=== PATIENT | male | born 2005 | race Caucasian/White ===

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

== ENCOUNTER 2023-10-15 20:57 | Emergency (ER) | payer OTHER, SELFPAY ==
[2023-10-15 20:58] VITALS: BP 136/96; PULSE 67; RESP 16; TEMP 35.9; O2SAT 100; BMI 16.7
[2023-10-15 21:02] VITALS: BP 136/96; PULSE 67; RESP 16; TEMP 35.9; O2SAT 100
--- NOTE | 2023-10-15 21:03 | EKG12_ITS ---
Test Reason : CP Blood Pressure : / mmHG Vent. Rate : 072 BPM Atrial Rate : 072 BPM P-R Int : 144 ms QRS Dur : 110 ms QT Int : 362 ms P-R-T Axes : 083 084 039 degrees QTc Int : 396 ms Normal sinus rhythm Incomplete right bundle branch block Borderline ECG Confirmed by CARINA MCFADDEN, FLAKITA ([id number]), school photograph editor MADDY WOODALL ([id number]) on 10/19/2023 12:39:21 PM Referred By: Confirmed By:FLAKITA LIM MD
--- NOTE | 2023-10-15 21:10 | ED.VIS.CHEST ---
HPI History of Present Illness Chief Complaint: Chest Pain Informant: patient Onset/Context/Timing Onset: Today, Yesterday and Days Activity at onset: gradual Timing: Intermittent Quality: Positive for Sharp Location: Right Chest and Left Chest Current Severity: Mild Worsened By: Breathing Relieved By: Nothing Associated Symptoms: Negative for Nausea, Vomiting, Diaphoresis, Dyspnea, Cough, Fever, Lightheadedness, Acid Reflux or Palpitations Narrative Narrative: 18-year-old male no significant past medical history other than depression on Prozac. No cardiac history no history of DVT or PE nor risk factors. No recent travel, surgery or immobilization. No leg pain or swelling. No significant family history. Patient states 2 days ago on started having chest discomfort primarily pleuritic. Stabbing. Diffusely across both sides of his chest. Really no shortness of breath. No leg pain or swelling. No hemoptysis. No fever. No cough. No URI symptoms. He denies any IV drug use. He is never had a pneumothorax. He denies any chest wall trauma. He denies exert sternal chest pain. Prior Similar Symptoms: No Recent Illness/Hospitalization: No CVD Risk Factors: Negative for Hypertension, Diabetes, Hypercholesterolemia, Family History 1' </=55 or Smoking PE Risk Factors: Negative for Recent Travel/Surgery, Recent Immobilization, Prior DVT or PE, Cancer or OCP + Smoking + >/=35 TAD Risk Factors: Negative for Marfan's Syndrome PFSH PFSH Home Medications fluoxetine 20 mg capsule 20 mg PO DAILY 10/15/23 [History Last Taken Unknown] prednisone 20 mg tablet 40 mg (2 x 20 mg) PO DAILY 4 days #8 tabs 10/15/23 [Rx Last Taken Unknown] Allergy/AdvReac Type Severity Reaction Status Date / Time No Known Allergies Allergy Verified 10/15/23 20:58 Social History Smoking Status: Current some day smoker tobacco type: e-cigarettes ROS ROS ED ROS Narrative His recent illness. Pleuritic chest pain. Review of Systems ROS Unobtainable: Denies due to encephalopathy Constitutional Constitutional ED: Denies chills or fever(s) Eyes Eyes: Reports none ENT ENT ED: Denies ear pain Cardiovascular Cardiovascular: Reports as per HPI and chest pain; Denies palpitations or racing heartbeat Respiratory/Chest Respiratory/Chest: Denies cough or dyspnea Gastrointestinal Gastrointestinal: Denies abdominal pain, constipation, diarrhea, melena, nausea or vomiting Genitourinary Genitourinary ED: Denies dysuria or hematuria Musculoskeletal Musculoskeletal: Denies arthralgias Integumentary Denies abscess Neurologic Neurologic: Denies headache(s) Psychiatric Psychiatric: Denies anxiety Endocrine Endocrinology: Denies cold intolerance Hematologic/Lymphatic Hematologic/Lymphatic: Denies easy bleeding or easy bruising Allergic/Immunologic Allergic/Immunologic ED: Denies mouth swelling, tongue swelling or urticaria EXAM Physical Exam Narrative Exam Narrative: Well-appearing 18-year-old male. Vital signs stable afebrile. Pulse ox 100% on room air no signs hypoxia. He is in no distress. Mom and sister present in room. H EENT exam normal. Moist use membranes. Neck nontender no JVD. No lymphadenopathy. Lungs clear to auscultation bilaterally. Heart regular rhythm rate about 70 no murmur. Chest wall minimal tenderness on the right. No ecchymosis or bruising. No redness. No crepitance. No subcu air. No bony deformity. Abdomen soft nontender normal bowel sounds no peritoneal signs. Moving all 4 extremities. Equal symmetrical radial pulses. 5/5 rack washer strength. Normal range of motion. Calves are nontender without edema or cords. Neurologically is awake alert with no focal motor deficits. Back nontender. Benign exam. Const Vital Signs: 10/15/23 20:58 10/15/23 21:02 10/15/23 21:19 Temperature 96.7 F L 96.7 F L Temperature Source Temporal Temporal Pulse Rate 67 67 Respiratory Rate 16 16 Respiratory Effort Normal Non-Labored Blood Pressure 136/96 H 136/96 H Blood Pressure Mean 109 109 Pulse Ox 100 100 Oxygen Delivery Method Room Air Room Air Positive well nourished and well developed; Negative for obese, cachectic, contractures or unkempt General Appearance ED: well developed and NAD; Negative for unkempt, cachectic, contractures or pallor Nutritional Appearance: Negative for cachectic or obese HEENT Reports moist mucous membranes; Denies dry mucous membranes normocephalic and atraumatic; Negative for trauma or tenderness Mouth ED: No dry mucous membranes Mouth: No dry mucous membranes Eyes PERRL and EOMs intact bilaterally General Eye ED: Negative for pale conjunctiva or scleral icterus Neck no lymphadenopathy, supple and no JVD General: Negative for tenderness Chest Wall inspection of chest normal and palpation of chest normal Chest: Negative for tenderness Resp normal respiratory effort and clear to auscultation bilaterally Effort and Inspection: Negative for respiratory distress Auscultation: Negative for rales, rhonchi or wheezes Cardio regular rate, regular rhythm, S1 normal heart sound, S2 normal heart sound and no murmurs Rate: Negative for bradycardia or tachycardic Rhythm: Negative for abnormal rhythm Peripheral Pulses: pulses 2+ throughout GI normal to inspection, nondistended, normoactive bowel sounds, soft to palpation, non-tender, non-distended and no masses Auscultation: Negative for hyperactive bowel sounds Back/Spine no CVA tenderness and no thoracic nor lumbar tenderness General Back: Negative for CVA tenderness Cervical Spine: Negative for cervical spine tenderness Extremity normal to inspection General Extremety ED: Negative for edema, pulses abnormal or tenderness General Extremity: Negative for edema or pulses abnormal Neuro oriented x3 and CN's II-XII intact bilaterally Sensorium / Orientation: awake, alert, oriented to person, oriented to place and oriented to time; Negative for confused, lethargic or stuporous Motor Exam: strength 5/5 throughout Psych mental status grossly normal Appearance: Negative for unkempt Attitude: No agitated Mood & Affect: Negative for depressed, anxious or tearful Skin no rashes or lesions noted and no wounds General Skin Exam: Negative for jaundice or pallor Rashes: No rashes noted Trauma: Negative for abrasion or laceration Heart Score History: Slightly/Non-Suspicious ECG: Normal Age: </= 45 years Risk Factors: No Risk Factors Score: 0 MDM MDM MDM Narrative Medical decision making narrative: 18-year-old male no significant past medical history with pleuritic chest pain. Exam is benign. No DVT or PE risk factors. No cardiac disease. EKG is a sinus rhythm with an incomplete right bundle branch block. Chest x-ray being obtained. I do not think lab work is necessary. Repeat exam at 9:33 PM call. He has been using ibuprofen at home without relief. To be placed on prednisone given first dose here in 40 mg a day for the next 4 days. Follow-up with his primary care physician if not improving or return if worse. I discussed the test results with he and his family. They are comfortable with the plan. I do not feel he needs a CAT scan or any lab work currently. Again he has no history nor family history nor risk factors for DVT or PE. History & Record Review Discussion w/independent historian: Patient and Family Additional record(s) reviewed:: Prior inpatient record, Prior outpatient record, Prior ED visit and Prior labs Radiography Chest X-Ray - ED: 2 View, Read by ED Physician, Heart, Lungs, Mediastinum, Bony Structures and No Acute Disease Diagnostic Testing: X-ray, 2 views, AP and lateral, interpreted by myself shows no acute abnormality. Normal cardiac silhouette. Normal aortic knob. Normal mediastinum. Bilateral normal lung bustamante. No pneumothorax. No infiltrate. No effusions or fluid. Rhythm Strip Rhythm Strip: Sinus Rhythm Rate: 72 Ectopy: None EKG Initial EKG: Attestation: I personally reviewed and interpreted this EKG as follows: Interpretation: Sinus Rhythm and No Acute Injury Pattern Comments: Normal sinus rhythm rate of 72 no acute signs of MD or ischemia. Incomplete right bundle branch block. No old EKG available for comparison. Prior EKG tracings: not available for review Prior: No Prior Discharge Plan Triage Chief Complaint: Chest Pain ED Provider: James Garcia Dx/Rx/DC Orders Clinical Impression: Chest pain Instructions: ED Chest Pain, Noncardiac Prescriptions: New prednisone 20 mg tablet 40 mg PO DAILY 4 Days Qty: 8 0RF No Action fluoxetine 20 mg capsule 20 mg PO DAILY Patient Comments: take 1 capsule by mouth daily Primary Care Provider: Carlos Perez Referrals: Carlos Perez MD [Primary Care Provider] - 1 Week if not improving Activity Restrictions/Additional Instructions: Chest pain may be due to inflammation in your lungs or chest wall. We will start you on prednisone 40 mg a day for the next 4 days starting tomorrow. You were given your first dose here [facility] emergency department. Follow-up with your doctor if not improving or return if worse. This should progressively get better. Your chest x-ray and EKG were basically unremarkable. Disposition Disposition: Home, Self Care
--- NOTE | 2023-10-15 21:20 | RAD_ITS ---
STUDY: X-RAY CHEST REASON FOR EXAM: Male, 18 years old. cp TECHNIQUE: PA and lateral views of the chest. COMPARISON: 08/19/2020 FINDINGS: The lungs are clear and expanded. There is no demonstrated pleural abnormality. Normal size heart. Normal mediastinum and angus. Normal visualized pulmonary arteries. Normal visualized aortic arch and descending thoracic aorta. Normal visualized thoracic spine. Normal visualized ribs, clavicles, and shoulders. There is no demonstrated abnormality of the visualized soft tissue structures of the upper abdomen. RAD/Chest PA and Lateral IMPRESSION: Normal x-ray examination of the chest. Electronically Signed: Jordan Daigle MD ([place]) at 21:37 EST ,
[2023-10-15] MEDS: predniSONE 20 MG Tablet 40 MG PO (21:48)
== END 2023-10-15 21:52 | disposition home or self-care (01) ==
LOC: ED 21:51
PROVIDERS: Emergency Provider Emergency Medicine; PCP Pediatrics; Visit Provider Emergency Medicine
DX: R07.9 Chest pain, unspecified (principal); F17.290 Nicotine dependence, other tobacco product, uncomplicated
CPT/HCPCS: 71046; 93005; 99282

== ENCOUNTER 2024-09-07 18:28 | Emergency (ER) | payer OTHER, SELFPAY ==
[2024-09-07 18:29] VITALS: BP 142/96; PULSE 74; RESP 16; TEMP 36.2; O2SAT 100; BMI 17.6
--- NOTE | 2024-09-07 18:49 | EX.ED.DYSGE1 ---
HPI History of Present Illness Chief Complaint: Shortness of Breath Detail of Chief Complaint: Patient presents from urgent care because of pleuritic chest pain Informant: patient Onset/Context/Timing Onset: Today and Hours Context: Sudden Onset Timing: Intermittent Quality: Pleuritic pain left scapular region initially and also left anterior chest Location: Left side Current Severity: Pain with breathing. Worsened by: Breathing Relieved by: Not breathing Associated Symptoms Associated Symptoms: Upper respiratory viral symptoms Narrative Narrative: Patient is a 19-year-old male. He presents because of pleuritic left scapular pain that started earlier today he now complains of pleuritic anterior chest pain. He does endorse rhinorrhea, congestion. Denies sore throat. He has a slight cough at best. The cough is nonproductive. There is no history of VTE. Has no risk factors for VTE. He denies leg pain, swelling discoloration. He denies GI symptoms. He initially went to the urgent care. He was sent here. He is not certain why he was sent here. Prior similar symptoms: No Recent Illness/Hospitalization: No PFSH FOR[facility], [facility]–1983 Home Medications ?Medication ?Instructions ?Recorded ?Last Taken ?Type fluoxetine 20 mg capsule 20 mg PO DAILY 10/15/23 Unknown History prednisone 20 mg tablet 40 mg (2 x 20 mg) PO DAILY 4 days 10/15/23 Unknown Rx #8 tabs ibuprofen 600 mg tablet 600 mg PO Q8H PRN #15 TABLETS 09/07/24 Unknown Rx Allergy/AdvReac Type Severity Reaction Status Date / Time No Known Allergies Allergy Verified 09/07/24 18:29 Social History Smoking Status: Current some day smoker tobacco type: e-cigarettes ROS ROS ED Constitutional Constitutional ED: Denies chills, fever(s) or subjective ENT ENT ED: Reports rhinorrhea; Denies ear pain or sore throat Cardiovascular Cardiovascular: Reports chest pain; Denies orthopnea, palpitations, paroxysmal nocturnal dyspnea or racing heartbeat Respiratory/Chest Respiratory/Chest: Reports dyspnea; Denies dyspnea on exertion, orthopnea, paroxysmal nocturnal dyspnea or sputum Gastrointestinal Gastrointestinal: Denies diarrhea, nausea or vomiting Integumentary Denies rash Neurologic Neurologic: Denies weakness EXAM Physical Exam Const Vital Signs: 09/07/24 18:29 Temperature 97.2 F L Temperature Source Temporal Pulse Rate 74 Respiratory Rate 16 Blood Pressure 142/96 H Blood Pressure Mean 111 Pulse Ox 100 Oxygen Delivery Method Room Air Positive well nourished and well developed General Appearance ED: well developed and NAD; Negative for pallor HEENT Reports moist mucous membranes HEENT Narrative: Head is atraumatic no cephalic. Ears normal. Nares patent. Slight clear drainage noted. Eyes PERRL and EOMs intact bilaterally General Eye ED: Negative for pale conjunctiva or scleral icterus Neck no lymphadenopathy, supple and no JVD Neck Narrative: Trachea is midline. There is no dysphonia. There is no stridor. Chest Wall palpation of chest normal Resp normal respiratory effort and clear to auscultation bilaterally Cardio regular rate, regular rhythm, S1 normal heart sound, S2 normal heart sound and no murmurs Extremity Extremity Narrative: There is no asymmetry, swelling, discoloration, leg vein distention, palpable cords or tenderness along the distribution of the deep venous system. Neuro oriented x3 and CN's II-XII intact bilaterally Sensorium / Orientation: alert Psych mental status grossly normal Skin no rashes or lesions noted, no wounds and skin turgor normal General Skin Exam: elasticity normal; Negative for jaundice or pallor MDM MDM MDM Narrative Medical decision making narrative: Patient history and physical is consistent with pleurisy. There is no concern for PE. He is PERC negative and Wells score is less than 3. Symptoms are not concerning for cardiac etiology. Clinically he does not have a pneumothorax. Clinically he does not have pneumonia. Will treat with NSAID since he has no contraindication. History & Record Review Additional record(s) reviewed:: Prior ED visit (Seen July 2021 for appendicitis. Seen July 2020 for upper respiratory infection) Discharge Plan Triage Chief Complaint: Shortness of Breath ED Provider: Kana Posada Dx/Rx/DC Orders Clinical Impression: Pleurisy, Acute upper respiratory infection Instructions: ED Pleurisy Prescriptions: New ibuprofen 600 mg tablet 600 mg PO Q8H PRN Qty: 15 0RF No Action fluoxetine 20 mg capsule 20 mg PO DAILY Patient Comments: take 1 capsule by mouth daily prednisone 20 mg tablet 40 mg PO DAILY 4 Days Qty: 8 0RF Primary Care Provider: Carlos Perez Referrals: Carlos Perez MD [Primary Care Provider] - 1 Week if not improving Print Language: [place] Disposition Disposition: Home, Self Care
[2024-09-07 18:52] VITALS: O2SAT 100
[2024-09-07 19:01] VITALS: BP 140/96; PULSE 78; RESP 18; TEMP 36.8; O2SAT 98
== END 2024-09-07 19:09 | disposition home or self-care (01) ==
PROVIDERS: Emergency Provider Emergency Medicine; PCP Pediatrics; Visit Provider Emergency Medicine
DX: R09.1 Pleurisy (principal); J06.9 Acute upper respiratory infection, unspecified; F17.290 Nicotine dependence, other tobacco product, uncomplicated
CPT/HCPCS: 99282